=== PATIENT | female | born 2000 | race Caucasian/White ===

== ENCOUNTER 2025-07-03 23:07 | Emergency (ER) | payer BC, SELFPAY ==
[2025-07-03 23:09] VITALS: BP 133/89
[2025-07-03 23:31] VITALS: BMI 18.9
[2025-07-03 23:42] LABS: Hematocrit 37.8 % (37.0-47.0); Hemoglobin 13.3 g/dL (12.0-16.0); Mean Corp Hgb Conc. 35.2 g/dL (33.0-37.0); Mean Corpuscular Volume 86.7 fL (81.0-99.0); Nucleated Red Blood Cells % 0 %; Platelet Count 242 10^3/uL (130-400); Red Cell Dist. Width 11.5 % (11.5-14.5)
[2025-07-04] LABS: HCG, Serum Qualitative Screen Negative
[2025-07-04 00:04] LABS: ALT (SGPT) 19 U/L (0-35); AST (SGOT) 23 U/L (14-36); Albumin 5.2 g/dl (3.5-5.0); Alkaline Phosphatase 43 U/L (38-126); Blood Urea Nitrogen 11 mg/dl (7-17); Calcium 9.8 mg/dl (8.4-10.2); Carbon Dioxide 27 mmol/L (22-30); Chloride 101 mmol/L (98-107); Estimated Creatinine Clearance 94 ml/min; Glucose 111 mg/dl (70-99); Lipase 115 U/L (23-300); Potassium 3.9 mmol/L (3.5-5.1); Sodium 134 mmol/L (135-145); Total Protein 8.0 g/dl (6.3-8.2); eGFR > 60.00
[2025-07-04 00:15] LABS: Urine Character Clear (Clear)
[2025-07-04 00:35] LABS: Urine Squamous Cell >30 /LPF (Few)
--- NOTE | 2025-07-04 00:56 | ED.GENMED ---
History of Present Illness
General
Chief Complaint: Abdominal Pain
Source: patient
Exam Limitations: none
Time Seen by Provider: 07/03/25 23:44
Nursing documentation reviewed up to this point in time: agreed with
History of Present Illness
History of Present Illness:
25-year-old female presenting to the emergency department today with concerns of right lower quadrant abdominal pain over the past few days. Does have nausea some intermittent diarrhea denies any vomiting denies any chest pain shortness of breath
or any upper abdominal pain. Had an ultrasound that had some concerning features possible appendicitis was told to get a CT scan. Denies any fevers.
Review of Systems
Review of Systems
Allergies reviewed?: Yes
All Other Systems: ROS reviewed and negative except as documented in HPI and ROS
Phy Exam
Physical Exam
Physical Exam:
GENERAL: Alert , in no apparent distress
EYE: pupils equal and reactive
NECK: Supple, no significant adenopathy.
ENT: o/p clr, mmm.
CARDIAC: Regular rate and rhythm .
LUNGS: Clear breath sounds bilaterally, no acute respiratory distress, no wheezes/rales/rhonchi
ABDOMEN: Right lower quadrant abdominal pain otherwise soft abdomen
NEUROLOGICAL: Alert and oriented, no focal neuro deficits
SKIN: Warm and dry, skin intact.
MUSCULOSKELETAL: No edema, well perfused.
PSYCH: Normal and appropriate interaction.
Course
Orders/Labs/Results
Orders:
Orders
07/03/25 23:32
Urinalysis Reflex To Culture Urgent
Date Specimen was Collected: 07/03/25
Time Specimen was Collected: 23:32
Test Result ONCE
07/03/25 23:34
Complete Blood Count/With Diff Urgent
Comprehensive Metabolic Panel Urgent
HCG, Serum Qualitative Screen Urgent
Lipase Urgent
07/03/25 23:55
Iohexol [Omnipaque] See Protocol PO NOW STA
07/04/25
CT Abd/pel W Iv And Oral Contr Urgent
Reason For Exam: rlq pain
07/04/25 00:04
Urine Microscopic Reflex Cult Urgent
Abnormal Lab Results
07/03/25 07/04/25
23:34 00:04
Sodium 134 L mmol/L
(135-145)
Glucose 111 H mg/dl
(70-99)
Albumin 5.2 H g/dl
(3.5-5.0)
Ur Occult Blood Reflex 2+ A
(Negative)
Urine RBC 3-6 A /HPF
(0-2)
Urine Bacteria (Reflex) Few A
(Negative)
Urine Albumin (Reflex) 2+ A
(Neg - Trace)
07/03/25 23:34
07/03/25 23:34
Vital Signs
Initial and Last Documented VS:
Initial Vital Signs
Temp Pulse Resp BP Pulse Ox
98.0 F 98 14 133/89 96
07/03/25 23:09 07/03/25 23:09 07/03/25 23:09 07/03/25 23:09 07/03/25 23:09
Last Documented Vital Signs
Temp Pulse Resp BP Pulse Ox
98.0 F 98 14 133/89 96
07/03/25 23:09 07/03/25 23:09 07/03/25 23:09 07/03/25 23:09 07/04/25 00:57
MDM/Problems Addressed
MDM/Problems Addressed:
25-year-old female department today with concerns of right lower quadrant abdominal pain. CT scan obtained here without emergent findings labs unremarkable patient in no distress with normal vital signs stable for discharge. Return precautions
given.
*Pulse Oximetry
SaO2: 96
Oxygen Mode of Delivery: Room air
Patient hypoxic: no (96)
*Critical Care Note
Total Time (30-74mins, 75-104mins- exclusive of procedures): Not Applicable
ED Attending Note
-
Portions of this chart may have been created with voice recognition software.� Occasional wrong word or��sound alike� substitutions may have occurred due to the inherent limitations of voice recognition software.
Discharge Plan
Departure
Patient Disposition: Home (Routine Discharge)
Date of Disposition: 07/04/25
Time of Disposition: 04:51
Patient with high blood pressure during this ER visit?: No
Condition: Good
Covid-19: Not Applicable
Discharge Problem:
Abdominal pain
Instructions: Abdominal Pain
Referrals:
Hemanth Vega DO [Family Provider]
Activity Restrictions/Additional Instructions:
You came to the emergency department today with concerns of abdominal pain. Here had a reassuring assessment and CT scan that did not show any emergent findings. Please have close with the primary care doctor within the next few days. Return for
any worsening, new or concerning symptoms.
Interventions
Interventions:
*Risk Screen - Suicide Last Done: 07/03/25 23:09
*General Assessment Last Done: 07/03/25 23:31
*Neglect/Abuse Screening Last Done: 07/03/25 23:31
*ED COVID-19 Vaccine History Last Done: 07/03/25 23:31
*ED Influenza Vaccine History Last Done: 07/03/25 23:31
[facility] Risk Assessment Tool Last Done: 07/03/25 23:31
IR-Eoxvfq-Amhddgeorr Assessment Last Done: 07/04/25 00:40
Discharge Date and Time
Print Language: FRENCH
[2025-07-04] MEDS: OMNIPAQUE 50 ML PO (01:04)
== END 2025-07-04 05:05 | disposition home or self-care (01) ==
LOC: EMR 23:07
PROVIDERS: EMERGENCY PHYSICIAN Student in an Organized Health Care Education/Training Program; FAMILY PHYSICIAN Student in an Organized Health Care Education/Training Program
DX: R10.31 Right lower quadrant pain (principal); R11.0 Nausea
CPT/HCPCS: 99284; 74177; 80053; 81003; 81015; 83690; 84703; 85025; Q9967